=== PATIENT | male | born 1950 | race Caucasian/White ===

== ENCOUNTER 2017-03-30 06:18 | Outpatient (CLI) | payer OTHER | END 2017-03-30 06:19 | disposition home or self-care (01) | DX: C61 Malignant neoplasm of prostate (principal); D64.9 Anemia, unspecified ==

== ENCOUNTER 2017-06-23 14:23 | Emergency (ER) | payer OTHER ==
--- NOTE | 2017-06-23 15:17 | ED Physician Documentation ---
PD HPI ABD PAIN - Stated complaint Stated Complaint: R SIDE PX/KIDNEY PX - Chief complaint Chief Complaint: Abd Pain - History obtained from History obtained from: Patient - History of Present Illness Timing - onset: How many hours ago (3-4), Today Timing - details: Abrupt onset, Still present (on arrival to ED but is improving suddenly while here prior to medications.) Quality: Aching, Sharp, Pain Location: RLQ Radiation: Right flank Improved by: No: Laying still, Position Worsened by: No: Moving, Breathing, Position Associated symptoms: Nausea, Vomiting. No: Fever, Diarrhea, Constipation, Near syncope / syncope, Loss of appetite Similar symptoms before: Diagnosis (kidney stones) Review of Systems Constitutional: denies: Fever, Chills, Myalgias Nose: denies: Rhinorrhea / runny nose, Congestion Throat: denies: Sore throat Respiratory: denies: Cough GI: reports: Abdominal Pain (just today), Nausea (due to pain), Vomiting. denies: Constipation, Diarrhea : denies: Dysuria, Frequency Skin: denies: Rash, Lesions Neurologic: denies: Generalized weakness, Near syncope PD PAST MEDICAL HISTORY - Past Medical History Cardiovascular: None Respiratory: None Neuro: None Endocrine/Autoimmune: None - Present Medications Home Medications: Ambulatory Orders Medication Instructions Recorded Confirmed Ondansetron Odt [Zofran] 4 mg TL Q6H PRN #15 tablet 06/23/17 Tramadol HCl 50 mg PO Q6H PRN #20 tablet 06/23/17 - Allergies Allergies/Adverse Reactions: Allergies Allergy/AdvReac Type Severity Reaction Status Date / Time acetaminophen [From Percocet] AdvReac Unknown Verified 06/23/17 14:58 aspirin AdvReac Unknown Verified 06/23/17 14:58 hydrocodone AdvReac Unknown Verified 06/23/17 14:58 oxycodone HCl * AdvReac Unknown Verified 06/23/17 14:58 [From Percocet] - Living Situation Living Arrangement: reports: At home - Family History Family history: reports: Non contributory - Immunizations Immunizations are current?: Yes PD ED PE NORMAL - Vitals Vital signs reviewed: Yes - General General: Alert and oriented X 3, Well developed/nourished, Other (in pain due to stone initially, but was improving before I saw him and continues to improve. Having minimal to no pain now, and feels he may have passed it already. ) - Cardiac Cardiac: RRR, No murmur - Respiratory Respiratory: Clear bilaterally - Abdomen Abdomen: Normal bowel sounds, Soft, Non tender, Non distended, No organomegaly - Back Back: No CVA TTP Results - Vitals Vitals: Oxygen O2 Source Room air - Labs Labs: Laboratory Tests 06/23/17 06/23/17 15:06 15:19 POC Whole Bld Glucose 104 H Urine Color YELLOW Urine Clarity CLEAR Urine pH 7.5 Ur Specific [place] 1.015 Urine Protein NEGATIVE Urine Glucose (UA) NEGATIVE Urine Ketones 15 H Urine Occult Blood MODERATE H Urine Nitrite NEGATIVE Urine Bilirubin NEGATIVE Urine Urobilinogen 0.2 (NORMAL) Ur Leukocyte Esterase NEGATIVE Urine RBC 11-25 H Urine WBC 0-3 Ur Epithelial Cells RARE Renal Tubular Ur Squamous Epith Cells FEW Squamous Urine Bacteria Few Urine Casts 0-2 RBC Casts Urine Mucus Few Strands Ur Microscopic Review INDICATED Urine Culture Comments NOT INDICATED PD MEDICAL DECISION MAKING - ED course Complexity details: re-evaluated patient (still no pain here in ED so does seem to have passed the stone perhaps. He felt okay leaving [employer] ), considered differential, d/w patient Departure - Departure Disposition: 01 Home, Self Care Clinical Impression: Ureterolithiasis Abdominal pain Qualifiers: Abdominal location: right lower quadrant Qualified Code(s): R10.31 - Right lower quadrant pain Condition: Stable Record reviewed to determine appropriate education?: Yes Instructions: ED Stone Renal Passed Follow-Up: Shakeel Timmons MD [Primary Care Provider] - Prescriptions: Tramadol HCl 50 mg PO Q6H PRN #20 tablet PRN Reason: Pain Ondansetron Odt [Zofran] 4 mg TL Q6H PRN #15 tablet PRN Reason: Nausea / Vomiting Comments: Presume it was a kidney stone that has passed. If the pain stays absent or very mild, than just Tylenol or ibuprofen if needed for pains. Return if worsened again. If you have moderate pain, then you can use the pain medicines as needed. Discharge Date/Time: 06/23/17 16:21
[2017-06-23 15:38] LABS: BILIRUBIN,URINE NEGATIVE (NEGATIVE); PH,URINE 7.5 PH (5.0-7.5)
[2017-06-23 15:41] LABS: UA w/ MICROSCOPIC CHARGE YES
[2017-06-23 15:51] LABS: UR CULTURE IF IND NOT INDICATED; WBC,URINE 0-3 /HPF (0-3)
[2017-06-23 16:15] VITALS: BP 151/73
== END 2017-06-23 16:21 | disposition home or self-care (01) ==
LOC: ED 14:23
DX: N20.1 Calculus of ureter (principal); R10.31 Right lower quadrant pain
CPT/HCPCS: 81001; 81003; 87086; 99283

== ENCOUNTER 2018-03-28 05:36 | Outpatient (CLI) | payer OTHER ==
[2018-03-28 06:20] LABS: BASOPHILS # (AUTO) 0.1 10^3/uL (0.0-0.1); BASOPHILS % (AUTO) 0.8 %; EOSINOPHILS # (AUTO) 0.4 10^3/uL (0.0-0.7); EOSINOPHILS % (AUTO) 4.2 %; LYMPHOCYTES # (AUTO) 2.6 10^3/uL (1.5-3.5); LYMPHOCYTES % (AUTO) 28.6 %; MEAN CORPUSCULAR HGB CONC 33.3 g/dL (32.0-36.0); MEAN CORPUSCULAR VOLUME 90.3 fL (80.0-94.0); MEAN PLATELET VOLUME 7.4 fL (7.4-11.4); MONOCYTES # (AUTO) 0.7 10^3/uL (0.0-1.0); MONOCYTES % (AUTO) 7.4 %; NEUTROPHILS # (AUTO) 5.4 10^3/uL (1.5-6.6); PLT - PLATELET COUNT 274 10^3/uL (130-450); RED BLOOD COUNT 4.31 10^6/uL (4.70-6.10); WHITE BLOOD COUNT 9.2 x10^3/uL (4.8-10.8)
[2018-03-28 06:30] LABS: ALBUMIN 4.4 g/dL (3.2-5.5); ALBUMIN/GLOBULIN RATIO 1.2 (1.0-2.2); BILIRUBIN,TOTAL 0.8 mg/dL (0.2-1.0); CALCIUM 9.3 mg/dL (8.5-10.3); CREATININE 1.2 mg/dL (0.6-1.2)
== END 2018-03-28 05:37 | disposition home or self-care (01) ==
LOC: LAB 05:36
PROVIDERS: ATTEND Internal Medicine
DX: J44.9 Chronic obstructive pulmonary disease, unspecified (principal); F41.9 Anxiety disorder, unspecified; K21.9 Gastro-esophageal reflux disease without esophagitis; C61 Malignant neoplasm of prostate; Z79.899 Other long term (current) drug therapy
CPT/HCPCS: 36415; 80053; 84153; 84443; 85025

== ENCOUNTER 2018-05-17 11:01 | Outpatient (CLI) | payer OTHER | END 2018-05-17 11:02 | disposition home or self-care (01) | LOC: DI 11:01 | PROVIDERS: ATTEND Internal Medicine | DX: R94.31 Abnormal electrocardiogram [ECG] [EKG] (principal) | CPT/HCPCS: 93306 ==

== ENCOUNTER 2018-06-03 09:48 | Outpatient (CLI) | payer OTHER ==
[2018-06-03] MEDS ORDERED: REGADENOSON 0.4 MG/5 ML SYRINGE IVP ONE ×2 (11:14→15:16)
--- NOTE | 2018-06-03 16:35 | CARDIAC PROCEDURE NOTE ---
DATE OF SERVICE: 06/03/2018 Physician: FATIMAH Welch PRIMARY CARE PHYSICIAN: Shakeel Timmons MD PROCEDURE: Pharmacologic cardiac stress test. PROCEDURE DIAGNOSIS: Abnormal electrocardiogram with lateral T-wave inversion. CARDIAC RISK FACTORS: Include: 1. Age. 2. Hypertension. 3. Smoker. PREVIOUS CARDIAC PROCEDURES: Undocumented. CLINICAL HISTORY: A 68-year-old male without known coronary artery disease. He has COPD. He feels normal today. No medications were held. INITIAL RESTING VITAL SIGNS: BP 186/90, heart rate 62, height 71 inches, weight 164, BMI 22.92. PROCEDURE AND FINDINGS: The patient identity and date verified. Consent signed. Pharmaceutical check. Pharmacologic stress testing was performed with Lexiscan at a dose of 0.4 mg over 10 seconds. The heart rate increased to 88 beats per minute from the infusion and blood pressure peaked at 204/70. The patient developed no infusion-related symptoms. The resting ECG demonstrated normal sinus rhythm with nonspecific T-wave changes. Maximum ST segment depression with stress was 0 mm. There was no ectopy. FINAL IMPRESSIONS 1. Good quality test. 2. Nondiagnostic electrocardiogram for ischemia in the setting of vasodilator stress. 3. Nondiagnostic stress test for angina. 4. No ectopy. 5. Hypertensive blood pressure readings reducing to 164/84 at the end of the test. DISCUSSION AND RECOMMENDATIONS: Await myocardial perfusion report. The patient was noted to have T waves in aVL and V4, with stress, V3 developed biphasic T waves that eventually normalized. TD: 06/03/2018 15:31
--- NOTE | 2018-06-03 17:22 | Nuclear Medicine Report ---
Procedure Date: 06/03/2018 Accession Number: [id number] / [id number] Procedure: NM - Myocardial Perfusion STR/RST CPT Code: FULL RESULT: EXAM: SINGLE-ISOTOPE PHARMACOLOGICAL STRESS TEST WITH REGADENOSON. SINGLE-ISOTOPE AND ONE-DAY REST/STRESS MYOCARDIAL PERFUSION SCANS WITH TOMOGRAPHIC IMAGING, QUANTITATIVE ANALYSIS, WALL MOTION ANALYSIS AND CALCULATION OF EJECTION FRACTION. EXAM DATE: 06/03/2018 03:23 PM. CLINICAL HISTORY: Abnormal EKG COMPARISON: None. TECHNIQUE: After the intravenous administration of 10.2 mCi of Tc-99m sestamibi, a rest myocardial perfusion scan was done with tomography. Motion correction was applied when appropriate. After an appropriate delay, pharmacological stress was performed with the infusion of 0.4 mg regadenoson per protocol. According to protocol, 41.8 mCi of Tc-99m sestamibi was injected for stress myocardial perfusion scan. Motion correction was applied when appropriate. Gated tomographic images were obtained for wall motion analysis and computation of left ventricular ejection fraction. FINDINGS: Perfusion images: Left ventricular chamber size is normal at rest and unchanged at stress. No definite fixed perfusion deficits. Probable basal half inferior wall diaphragmatic attenuation artifact. There is apical thinning artifact. No convincing reversible perfusion deficits. Gated images: There is evidence of septal hypokinesis. The left ventricular ejection fraction is estimated at 56% (normal > 50%). Stress left ventricular EDV 152 mL, ESV 68 mL. IMPRESSION: 1. No convincing reversible perfusion deficits to indicate stress-induced ischemia. 2. No definite fixed perfusion deficits. Probable basal half inferior wall diaphragmatic attenuation artifact. Apical thinning artifact. 3. Left ventricular ejection fraction of 56% (normal > 50%). 4. There is evidence of septal hypokinesis. RADIA
== END 2018-06-03 09:49 | disposition home or self-care (01) ==
LOC: DI 09:48
PROVIDERS: ATTEND Internal Medicine
DX: R94.31 Abnormal electrocardiogram [ECG] [EKG] (principal)
CPT/HCPCS: 78452; 93016; 93017; 93018; A9500; J2785

== ENCOUNTER 2019-10-22 16:20 | Outpatient (CLI) | payer OTHER ==
--- NOTE | 2019-10-24 04:58 | Ultrasound Report ---
Reason: CAROTID BRUIT LT Procedure Date: 10/22/2019 Accession Number: [id number] / [id number] Procedure: US - Carotid Doppler Complete CPT Code: Final Report FULL RESULT: EXAM: BILATERAL CAROTID AND VERTEBRAL ARTERY DUPLEX DOPPLER ULTRASOUND EXAM DATE: 10/22/2019 05:22 PM CLINICAL HISTORY: Left carotid bruit. COMPARISON: CAROTID 09/06/2009 9:49 PM. TECHNIQUE: Grayscale imaging, color Doppler, and duplex spectral Doppler were used to evaluate the carotid and vertebral arteries bilaterally. Static images were obtained. FINDINGS: There is mild to moderate carotid plaquing on the right with moderate to large amount on the left. Normal antegrade flow is present in bilateral vertebral arteries. VELOCITIES (cm/sec): Right CCA mid: PSV 63.3 cm/sec CCA dist: PSV 71.9 cm/sec ICA prox: PSV 98.0 cm/sec, EDV 18.2 cm/sec ICA mid: PSV 74.7 cm/sec, EDV 15.5 cm/sec ICA dist: PSV 83.0 cm/sec, EDV 21.8 cm/sec ECA: PSV 86.0 cm/sec Vert: PSV 45.8 cm/sec ICA/CCA: 1.4 Left CCA mid: PSV 60.1 cm/sec CCA dist: PSV 113.9 cm/sec ICA prox: PSV 89.3 cm/sec, EDV 17.3 cm/sec ICA mid: PSV 85.6 cm/sec, EDV 18.2 cm/sec ICA dist: PSV 75.6 cm/sec, EDV 24.6 cm/sec ECA: PSV 115.7 cm/sec Vert: PSV 79.0 cm/sec ICA/CCA: 0.8 ICA diameter stenosis: Right: <50% by velocity and <70% by NASCET criteria. Left: <50% by velocity and <70% by NASCET criteria. IMPRESSION: 1. There is bilateral carotid artery plaquing, left greater than right. 2. In the right carotid artery there are no elevated carotid artery velocities to suggest hemodynamically significant stenosis. 3. In the left carotid artery there are no elevated carotid artery velocities to suggest hemodynamically significant stenosis. 4. Normal antegrade flow is present in bilateral vertebral arteries. General Recommendations: Stenosis =50% ICA - Follow-up ultrasound 6-12 months Stenosis <50% ICA - High Risk Patient with plaque - Follow-up ultrasound 1-2 years Normal Study but High Risk Patient - Follow-up ultrasound 3-5 years Management recommendations and diagnostic criteria are based on current IAC endorsed standards in Carotid Artery Stenosis: Grayscale and Doppler Ultrasound Diagnosis. Validated velocity measurements with angiographic measurements and velocity criteria are extrapolated from diameter data as defined by the Society of Radiologists in Ultrasound Consensus Conference Radiology 2003; 229;340-346. RADIA
== END 2019-10-22 16:21 | disposition home or self-care (01) ==
LOC: DI 16:20
PROVIDERS: ATTEND Family Medicine
DX: R09.89 Other specified symptoms and signs involving the circulatory and respiratory systems (principal)
CPT/HCPCS: 93880

== ENCOUNTER 2020-01-11 08:10 | Outpatient (CLI) | payer OTHER ==
--- NOTE | 2020-01-11 13:32 | MRI Report ---
Reason: MIGRAINE HEADACHES Procedure Date: 01/11/2020 Accession Number: [id number] / [id number] Procedure: MRI - Brain W/O CPT Code: Final Report FULL RESULT: EXAM: MRI brain without contrast INDICATION: 69-year-old male with migraine headaches. TECHNIQUE: 1. Sagittal T1 spin-echo. 2. Coronal fat-saturated T2. 3. Axial T1 MP rage, FLAIR, T2, T2*and DWI. COMPARISON: None. FINDINGS: There is generalized dilatation of the cerebral cortical sulci, considered well within normal limits for stated age. There is mild ex vacuo third/lateral ventriculomegaly. No hydrocephalus. A mild amount of white matter disease is identified in the supratentorial brain, manifested as focal and confluent T2 hyperintensities that are scattered throughout the periventricular, deep and subcortical white matter bilaterally. A frontoparietal distribution predominates. A small T2 hyperintensity is seen in the left thalamus, likely representing gliosis from a remote small-vessel ischemic injury. The signal intensity of the cortex and white matter is otherwise unremarkable. Flow voids are demonstrated in the main intracranial arteries. No abnormal diffusion restriction is demonstrated. No evidence of acute or chronic hemorrhage on the T2* GRE sequence. No abnormal extra-axial fluid collection. No mass effect or midline shift. Limited evaluation of the orbits reveals no gross pathology. A mucous retention cyst is demonstrated in a posterior ethmoid air cell on the left. There is mild mucosal thickening in the ethmoid air cells bilaterally and in the right frontal sinus. The paranasal sinuses are otherwise clear. No mastoid or middle ear effusion is demonstrated. The marrow signal intensity in the regional skeletal structures is unremarkable. IMPRESSION: 1. A mild amount of white matter disease is identified, likely representing chronic microangiopathy. 2. No other significant intracranial findings on this unenhanced brain MRI. In particular, there is no evidence of hemorrhage, space-occupying mass lesion or other potential cause for headaches.
== END 2020-01-11 08:11 | disposition home or self-care (01) ==
LOC: DI 08:10
PROVIDERS: ATTEND Physician Assistant
DX: G43.909 Migraine, unspecified, not intractable, without status migrainosus (principal); R90.82 White matter disease, unspecified
CPT/HCPCS: 70551

== ENCOUNTER 2020-05-01 11:37 | Outpatient (CLI) | payer OTHER ==
[2020-05-01 18:23] LABS: CALCIUM 9.5 mg/dL (8.5-10.3); CREATININE 1.5 mg/dL (0.6-1.2)
== END 2020-05-01 11:38 | disposition home or self-care (01) ==
LOC: LAB.WCP 11:37
PROVIDERS: ATTEND Family Medicine
DX: E87.5 Hyperkalemia (principal)
CPT/HCPCS: 36415; 80048

== ENCOUNTER 2021-03-21 07:48 | Outpatient (CLI) | payer OTHER ==
[2021-03-21 08:22] LABS: ALBUMIN 4.4 g/dL (3.2-5.5); ALBUMIN/GLOBULIN RATIO 1.3 (1.0-2.2); ALKALINE PHOSPHATASE 63 IU/L (42-121); ALT ALANINE AMINOTRANSFERASE 14 IU/L (10-60); AST ASPARTATE AMINOTRANSFERASE 15 IU/L (10-42); BILIRUBIN,TOTAL 0.9 mg/dL (0.2-1.0); BUN - BLOOD UREA NITROGEN 21 mg/dL (6-20); CALCIUM 9.4 mg/dL (8.5-10.3); CARBON DIOXIDE - CO2 22 mmol/L (21-32); CHLORIDE 104 mmol/L (101-111); CHOLESTEROL 181 mg/dL; CREATININE 1.7 mg/dL (0.6-1.2); GFR - MDRD 40 (>89); GLUCOSE 94 mg/dL (70-100); HDL CHOLESTEROL 45 mg/dL; LDL CHOLESTEROL,CALCULATED 121 mg/dL; LDL/HDL RATIO 2.7 (<3.6); POTASSIUM 4.4 mmol/L (3.5-5.0); SODIUM 137 mmol/L (135-145); TOTAL PROTEIN 7.8 g/dL (6.7-8.2); TRIGLYCERIDES 75 mg/dL; VLDL CHOLESTEROL 15 mg/dL
[2021-03-21 08:24] LABS: BASOPHILS # (AUTO) 0.1 10^3/uL (0.0-0.1); BASOPHILS % (AUTO) 0.9 %; EOSINOPHILS # (AUTO) 0.4 10^3/uL (0.0-0.7); EOSINOPHILS % (AUTO) 4.3 %; HCT - HEMATOCRIT 37.5 % (42.0-52.0); HGB - HEMOGLOBIN 12.6 g/dL (14.0-18.0); LYMPHOCYTES # (AUTO) 2.1 10^3/uL (1.5-3.5); LYMPHOCYTES % (AUTO) 23.9 %; MEAN CORPUSCULAR HEMOGLOBIN 31.2 pg (27.0-31.0); MEAN CORPUSCULAR HGB CONC 33.6 g/dL (32.0-36.0); MEAN CORPUSCULAR VOLUME 92.8 fL (80.0-94.0); MEAN PLATELET VOLUME 9.1 fL (7.4-11.4); MONOCYTES # (AUTO) 0.6 10^3/uL (0.0-1.0); MONOCYTES % (AUTO) 6.5 %; NEUTROPHILS # (AUTO) 5.6 10^3/uL (1.5-6.6); NEUTROPHILS % (AUTO) 64.1 %; PLT - PLATELET COUNT 283 10^3/uL (130-450); RED BLOOD COUNT 4.04 10^6/uL (4.70-6.10); RED CELL DISTRIBUTION WIDTH 12.6 % (12.0-15.0); WHITE BLOOD COUNT 8.7 x10^3/uL (4.8-10.8)
[2021-03-21 08:35] LABS: THYROID STIMULATING HORMONE 1.97 uIU/mL (0.34-5.60)
== END 2021-03-21 07:49 | disposition home or self-care (01) ==
LOC: LAB 07:48
PROVIDERS: ATTEND Family Medicine
DX: I12.9 Hypertensive chronic kidney disease with stage 1 through stage 4 chronic kidney disease, or unspecified chronic kidney disease (principal); N18.30 Chronic kidney disease, stage 3 unspecified; E87.5 Hyperkalemia
CPT/HCPCS: 36415; 80053; 80061; 83721; 84443; 85025

== ENCOUNTER 2021-11-14 07:16 | Outpatient (CLI) | payer MEDICARE, OTHER ==
--- NOTE | 2021-11-14 08:53 | Ultrasound Report ---
PROCEDURE: Carotid Doppler Complete INDICATIONS: CAROTID STENOSIS TECHNIQUE: Color and pulse Doppler interrogation was performed of both carotid systems, with image documentation and velocity measurements. COMPARISON: None. FINDINGS: Right side: Brachial blood pressure: 186/107 mm Hg. Common carotid artery peak systolic velocity: 77 cm/sec. Internal carotid artery peak systolic velocity: 95 cm/sec. Internal carotid artery end diastolic velocity: 18 cm/sec. External carotid artery peak systolic velocity: 155 cm/sec. ICA/CCA peak systolic ratio: 1.23 . Spencer scale imaging description: Eccentric mural plaque in the right bulb causing 75% stenosis by cross cut saw operator ss-sectional imaging with no significant stenosis by velocity/ratio criteria. Percent internal carotid artery stenosis: Less than 50% . Vertebral artery: Flow direction is antegrade. Left side: Brachial blood pressure: 195/91 mm Hg. Common carotid artery peak systolic velocity: 171 cm/sec. Internal carotid artery peak systolic velocity: 91 cm/sec. Internal carotid artery end diastolic velocity: 22 cm/sec. External carotid artery peak systolic velocity: 80 cm/sec. ICA/CCA peak systolic ratio: 0.53 . Spencer scale imaging description: Eccentric mural plaque in the left bulb causes a 67% stenosis by cross cut saw operator ss-sectional imaging with no significant stenosis by velocity/ratio criteria, however turbulent flow noted. Percent internal carotid artery stenosis: Less than 50% stenosis by velocity/ratio criteria. Vertebral artery: Flow direction is antegrade. IMPRESSION: 1. Both bulbs demonstrate eccentric mural plaque causing 75% diameter reduction on the right and 67% diameter reduction on the left, however by NASCET criteria there is less than 50% stenosis. By veloci ty/ratio criteria there is also less than 50% stenosis. 2. Consider MR angiogram The estimate of stenosis included in the report of the imaging study was calculated using the NASCET method Reviewed by: Zeke Bajwa on 11/14/2021 8:52 AM PST Approved by: Zeke Bajwa on 11/14/2021 8:52 AM PST Station ID: [id number]
== END 2021-11-14 07:17 | disposition home or self-care (01) ==
LOC: DI 07:16
PROVIDERS: ATTEND Family Medicine
DX: I65.23 Occlusion and stenosis of bilateral carotid arteries (principal)
CPT/HCPCS: 93880

== ENCOUNTER 2022-07-01 07:21 | Outpatient (CLI) | payer MEDICARE ==
[2022-07-01 07:38] LABS: BASOPHILS # (AUTO) 0.1 10^3/uL (0.0-0.1); BASOPHILS % (AUTO) 0.6 %; EOSINOPHILS # (AUTO) 0.3 10^3/uL (0.0-0.7); EOSINOPHILS % (AUTO) 3.4 %; HCT - HEMATOCRIT 34.3 % (42.0-52.0); HGB - HEMOGLOBIN 11.7 g/dL (14.0-18.0); LYMPHOCYTES # (AUTO) 2.7 10^3/uL (1.5-3.5); LYMPHOCYTES % (AUTO) 32.3 %; MEAN CORPUSCULAR HEMOGLOBIN 31.5 pg (27.0-31.0); MEAN CORPUSCULAR HGB CONC 34.1 g/dL (32.0-36.0); MEAN CORPUSCULAR VOLUME 92.2 fL (80.0-94.0); MONOCYTES # (AUTO) 0.5 10^3/uL (0.0-1.0); NEUTROPHILS # (AUTO) 4.9 10^3/uL (1.5-6.6); NEUTROPHILS % (AUTO) 57.6 %; PLT - PLATELET COUNT 277 10^3/uL (130-450); RED BLOOD COUNT 3.72 10^6/uL (4.70-6.10); RED CELL DISTRIBUTION WIDTH 12.8 % (12.0-15.0); WHITE BLOOD COUNT 8.5 x10^3/uL (4.8-10.8)
[2022-07-01 07:48] LABS: ALBUMIN/GLOBULIN RATIO 1.1 (1.0-2.2); BILIRUBIN,TOTAL 0.6 mg/dL (0.2-1.0); CALCIUM 9.7 mg/dL (8.5-10.3); CREATININE 1.9 mg/dL (0.6-1.2); POTASSIUM 4.8 mmol/L (3.5-5.0); TOTAL PROTEIN 7.6 g/dL (6.7-8.2)
[2022-07-01 08:05] LABS: THYROID STIMULATING HORMONE 2.44 uIU/mL (0.34-5.60)
== END 2022-07-01 07:22 | disposition home or self-care (01) ==
LOC: LAB 07:21
PROVIDERS: ATTEND Family Medicine
DX: R19.7 Diarrhea, unspecified (principal); R63.4 Abnormal weight loss
CPT/HCPCS: 36415; 80053; 84443; 85025

== ENCOUNTER 2023-01-22 08:47 | Day surgery (SDC) | payer MEDICARE ==
[2023-01-22] MEDS ORDERED: LACTATED RINGERS 1,000 ML IV ONE (08:58)
[2023-01-22] MEDS ORDERED: PROPOFOL 500 MG/50 ML 500 MG/50 ML VIAL ONE (10:08)
--- NOTE | 2023-01-22 10:18 | ANESTHESIA ---
Pre-Anesthesia VS, & Labs - Diagnosis screening exam - Procedure colonoscopy Vital Signs: Temp Pulse Resp BP Pulse Ox O2 Flow Rate 36.3 C L 76 16 173/92 H 100 0 01/22/23 09:15 01/22/23 09:15 01/22/23 09:15 01/22/23 09:15 01/22/23 09:15 01/22/23 09:15 Height: 6 ft Weight (kg): 69.8 kg Body Mass Index: 20.8 BMI Classification: Normal - NPO >8 hours - Lab Results Current Lab Results: Laboratory Tests 01/22/23 09:14: POC Whole Bld Glucose 82 Home Medications and Allergies Home Medications: Ambulatory Orders Lactobacillus Combination No.4 [Probiotic] 1 each PO DAILY 01/21/23 Lisinopril [Zestril] 10 mg PO BID 01/21/23 Multivitamin 1 each PO DAILY 01/21/23 Omeprazole 40 mg PO DAILY 01/21/23 Lactobacillus Combination No.4 [Probiotic] 1 each PO DAILY 01/21/23 Lisinopril [Zestril] 10 mg PO BID 01/21/23 Multivitamin 1 each PO DAILY 01/21/23 Omeprazole 40 mg PO DAILY 01/21/23 Allergies/Adverse Reactions: Allergies Allergy/AdvReac Type Severity Reaction Status Date / Time acetaminophen [From Percocet] AdvReac Unknown Verified 06/23/17 14:58 aspirin AdvReac Unknown Verified 06/23/17 14:58 hydrocodone AdvReac Unknown Verified 06/23/17 14:58 oxycodone HCl * AdvReac Unknown Verified 06/23/17 14:58 [From Percocet] Anes History & Medical History - Anesthetic History Anesthesia Complications: reports: No previous complications - Medical History Cardiovascular: reports: Hypertension Pulmonary: reports: None Gastrointestinal: reports: GERD, Hiatal hernia Urinary: reports: Benign prostate hypertrophy (brachytherapy), Kidney stones Neuro: reports: None Musculoskeletal: reports: Other Endocrine/Autoimmune: reports: None Smoking Status: Never smoker Psychosocial: reports: No issues indicated History of Cancer?: No - Surgical History General: reports: Colonoscopy Urologic: reports: Prostatic surgery Orthopedic: reports: Rotator cuff repair Exam General: Alert, Oriented x3, Cooperative, No acute distress Dental: WNL Mouth Openin Fingerbreadth Neck Mobility: Normal Mallampati classification: I Thyromental Distance: 4-6 cm Mental/Cognitive Status: Alert/Oriented X3, Normal for patient Plan Anesthesia Type: General Consent for Procedure(s) Verified and Reviewed: Yes Code Status: Attempt Resuscitation ASA classification: 2-Mild systemic disease Is this case an emergency?: No
[2023-01-22] MEDS ORDERED: LACTATED RINGERS 300 ML IV ONE (11:01)
[2023-01-22 11:20] VITALS: BP 143/88
--- NOTE | 2023-01-22 11:44 | ANESTHESIA POST OP EVALUATION ---
Anesthesia Post Eval - Post Anesthesia Eval Vitals: Last Vital Signs Temp 36.5 C 01/22/23 11:19 Pulse 73 01/22/23 11:19 Resp 16 01/22/23 11:19 BP 143/88 H 01/22/23 11:19 Pulse Ox 99 01/22/23 11:19 O2 Flow Rate 0 01/22/23 09:15 CV Function Including HR & BP: Stable Pain Control: Satisfactory Nausea & Vomiting: Negative Mental Status: Baseline Respiratory Status: Airway Patent Hydration Status: Satisfactory Anesthesia Complications: None
== END 2023-01-22 08:48 | disposition home or self-care (01) ==
LOC: SDS 08:47
PROVIDERS: ATTEND Surgery
PROC: 0DBN8ZZ Excision of Sigmoid Colon, Via Natural or Artificial Opening Endoscopic (ICD-10-PCS; principal; 2023-01-22 10:30)
DX: Z12.11 Encounter for screening for malignant neoplasm of colon (principal); K63.5 Polyp of colon; J44.9 Chronic obstructive pulmonary disease, unspecified
CPT/HCPCS: 45380; J7120

== ENCOUNTER 2023-07-21 06:49 | Outpatient (CLI) | payer MEDICARE ==
[2023-07-21 07:23] LABS: BASOPHILS # (AUTO) 0.1 10^3/uL (0.0-0.1); EOSINOPHILS # (AUTO) 0.3 10^3/uL (0.0-0.7); EOSINOPHILS % (AUTO) 3.6 %; HCT - HEMATOCRIT 35.8 % (42.0-52.0); HGB - HEMOGLOBIN 11.8 g/dL (14.0-18.0); LYMPHOCYTES # (AUTO) 3.1 10^3/uL (1.5-3.5); LYMPHOCYTES % (AUTO) 39.4 %; MEAN CORPUSCULAR HEMOGLOBIN 30.6 pg (27.0-31.0); MEAN PLATELET VOLUME 9.4 fL (7.4-11.4); MONOCYTES # (AUTO) 0.6 10^3/uL (0.0-1.0); MONOCYTES % (AUTO) 7.7 %; NEUTROPHILS # (AUTO) 3.7 10^3/uL (1.5-6.6); NEUTROPHILS % (AUTO) 47.9 %; PLT - PLATELET COUNT 289 10^3/uL (130-450); RED BLOOD COUNT 3.85 10^6/uL (4.70-6.10); RED CELL DISTRIBUTION WIDTH 12.3 % (12.0-15.0); WHITE BLOOD COUNT 7.8 x10^3/uL (4.8-10.8)
[2023-07-21 07:33] LABS: ALBUMIN 4.3 g/dL (3.2-5.5); ALBUMIN/GLOBULIN RATIO 1.3 (1.0-2.2); ALKALINE PHOSPHATASE 68 IU/L (42-121); ALT ALANINE AMINOTRANSFERASE 8 IU/L (10-60); AST ASPARTATE AMINOTRANSFERASE 11 IU/L (10-42); BILIRUBIN,TOTAL 0.5 mg/dL (0.2-1.0); BUN - BLOOD UREA NITROGEN 26 mg/dL (6-20); CALCIUM 9.9 mg/dL (8.5-10.3); CARBON DIOXIDE - CO2 26 mmol/L (21-32); CHLORIDE 108 mmol/L (101-111); CHOL/HDL RATIO 4.3 (<5.0); CHOLESTEROL 171 mg/dL; CREATININE 1.8 mg/dL (0.6-1.3); GFR - MDRD 37 (>89); GLUCOSE 91 mg/dL (74-104); HDL CHOLESTEROL 40 mg/dL; LDL CHOLESTEROL,CALCULATED 94 mg/dL; LDL/HDL RATIO 2.4 (<3.6); POTASSIUM 4.5 mmol/L (3.5-4.5); SODIUM 140 mmol/L (135-145); TOTAL PROTEIN 7.5 g/dL (6.4-8.9); TRIGLYCERIDES 185 mg/dL (48-352); VLDL CHOLESTEROL 37 mg/dL
[2023-07-21 07:45] LABS: THYROID STIMULATING HORMONE 2.66 uIU/mL (0.34-5.60)
== END 2023-07-21 06:50 | disposition home or self-care (01) ==
LOC: LAB 06:49
PROVIDERS: ATTEND Nurse Practitioner
DX: I65.29 Occlusion and stenosis of unspecified carotid artery (principal); I10 Essential (primary) hypertension; R63.4 Abnormal weight loss
CPT/HCPCS: 36415; 80053; 80061; 83721; 84153; 84443; 85025

== ENCOUNTER 2023-07-30 10:15 | Outpatient (CLI) | payer MEDICARE ==
[2023-07-30] MEDS ORDERED: iohexoL-300 100 ML VIAL IVP ONE (15:07)
--- NOTE | 2023-07-30 15:42 | CT Report ---
PROCEDURE: CT Angio Head/Neck INDICATIONS: CAROTID STENOSIS TECHNIQUE: Pre-contrast 4.5 mm thick sections acquired from the foramen magnum to the vertex. After the adminis tration of intravenous contrast, 1 mm thick sections acquired from the aortic arch through the [place] of [place]. Post-contrast 4.5 mm thick sections then re-acquired from the foramen magnum to the vert ex. 3-dimensional baztzfd-kfengfxhq-efkiiessvo (MIP) and/or volume rendering reformats were acquired of the central intracranial vasculature and neck separately. For radiation dose reduction, the foll owing was used: automated exposure control, adjustment of mA and/or kV according to patient size. CONTRAST: 80 cc of Isovue 300 COMPARISON: Carotid Doppler ultrasound 07/08/2023 FINDINGS: Image quality: Excellent. HEAD CT ANGIOGRAPHY: Anterior circulation: Atherosclerotic vascular calcifications of the intracranial internal carotid ar teries with moderate stenosis of the cavernous segments bilaterally.. The flow within the paired ant erior cerebral arteries is normal and symmetric. The flow within the middle cerebral arteries is nor mal and symmetric. The anterior communicating artery is seen. No aneurysms are seen. Posterior circulation: Visualized portions of the vertebral arteries demonstrate normal caliber, and join to form a normal appearing basilar artery. Flow within the posterior cerebral arteries is norm al and symmetric. No aneurysms are seen. NECK CT ANGIOGRAPHY: Carotid system: The great vessels demonstrate a conventional anatomy as they arise from the aortic a rch. Atherosclerotic calcified and noncalcified plaques within the aorta and proximal great vessels without hemodynamically significant stenosis. The origins of the common carotid arteries appear paten t. Atherosclerotic vascular calcifications of the bilateral common carotid arteries, greater on the l eft with areas of moderate narrowing. Mild narrowing of the right common carotid artery.. Atheroscler otic vascular calcifications of the bilateral carotid bulbs with approximately 40% narrowing of the p roximal right ICA. No significant narrowing of the left ICA.. The internal carotid arteries demonstr ate normal calibers and courses. Posterior circulation: Severe stenosis of the origin of the right vertebral artery and moderate steno sis at the origin of the left vertebral artery.. The more superior extracranial portions of both re tebral arteries also demonstrate normal courses and calibers with areas of atherosclerosis without na rrowing. They join to form a normal appearing basilar artery. Soft tissues: Visualized neck soft tissues demonstrate no suspicious abnormalities. Upper lobe emph ysematous changes. Bones: No suspicious bony lesions. Visualized cervical spine appears normally aligned. Degenerative changes of the cervical spine are present. IMPRESSION: 1.Diffuse atherosclerotic vascular calcifications. No large vessel occlusion, aneurysm or AVM. 2.There is moderate narrowing of the bilateral cavernous segments of the intracranial internal caroti d arteries with normal caliber and patency distally. 3.There is approximately 40% narrowing of the right proximal extracranial ICA. No significant narrowi ng of the left extracranial ICA. 4.Moderate narrowing of the left common carotid artery and mild narrowing of the right common carotid artery. 5.Severe stenosis of the origin of the right vertebral artery and moderate stenosis of the origin of the left vertebral artery. There is normal patency of the vertebral arteries distally. The estimate of stenosis included in the report of the imaging study was calculated using the NASCET method Reviewed by: Ari Marin MD on 07/30/2023 3:40 PM PDT Approved by: Ari Marin MD on 07/30/2023 3:40 PM PDT Station ID: [id number]
== END 2023-07-30 10:16 | disposition home or self-care (01) ==
LOC: DI 10:15
PROVIDERS: ATTEND Nurse Practitioner
DX: I65.23 Occlusion and stenosis of bilateral carotid arteries (principal); I70.0 Atherosclerosis of aorta; I67.2 Cerebral atherosclerosis
CPT/HCPCS: 70496; 70498; Q9967

== ENCOUNTER 2023-11-26 07:46 | Outpatient (CLI) | payer MEDICARE ==
[2023-11-26 08:15] LABS: BASOPHILS # (AUTO) 0.1 10^3/uL (0.0-0.1); BASOPHILS % (AUTO) 0.9 %; EOSINOPHILS # (AUTO) 0.5 10^3/uL (0.0-0.7); EOSINOPHILS % (AUTO) 5.9 %; HCT - HEMATOCRIT 34.1 % (42.0-52.0); HGB - HEMOGLOBIN 11.3 g/dL (14.0-18.0); LYMPHOCYTES # (AUTO) 2.1 10^3/uL (1.5-3.5); LYMPHOCYTES % (AUTO) 27.8 %; MEAN CORPUSCULAR HEMOGLOBIN 30.5 pg (27.0-31.0); MEAN CORPUSCULAR HGB CONC 33.1 g/dL (32.0-36.0); MEAN CORPUSCULAR VOLUME 92.2 fL (80.0-94.0); MEAN PLATELET VOLUME 8.6 fL (7.4-11.4); MONOCYTES # (AUTO) 0.6 10^3/uL (0.0-1.0); MONOCYTES % (AUTO) 7.7 %; NEUTROPHILS # (AUTO) 4.4 10^3/uL (1.5-6.6); NEUTROPHILS % (AUTO) 57.4 %; PLT - PLATELET COUNT 242 10^3/uL (130-450); WHITE BLOOD COUNT 7.7 x10^3/uL (4.8-10.8)
[2023-11-26 08:16] LABS: BILIRUBIN,URINE NEGATIVE (NEGATIVE); GLUCOSE, URINE (UA) NEGATIVE (NEGATIVE); KETONES,URINE (UA) NEGATIVE (NEGATIVE); LEUKOCYTE ESTERASE, URINE NEGATIVE (NEGATIVE); NITRITE,URINE NEGATIVE (NEGATIVE); OCCULT BLOOD,URINE TRACE-INTA (NEGATIVE); PROTEIN,URINE TRACE mg/dL (NEGATIVE); UROBILINOGEN,URINE 0.2 (NORMAL) E.U./dL (NORMAL)
[2023-11-26 08:29] LABS: CLARITY,URINE CLEAR (CLEAR); RBC,URINE 0-5 /HPF (0-5); SQUAMOUS EPITHELIAL CELL,UR FEW Squamous (<= Few)
[2023-11-26 08:30] LABS: BACTERIA,URINE Rare /HPF (None Seen)
[2023-11-26 08:33] LABS: ALBUMIN 4.4 g/dL (3.2-5.5); ALBUMIN/GLOBULIN RATIO 1.5 (1.0-2.2); ALKALINE PHOSPHATASE 74 IU/L (42-121); ALT ALANINE AMINOTRANSFERASE 14 IU/L (10-60); AST ASPARTATE AMINOTRANSFERASE 14 IU/L (10-42); BILIRUBIN,TOTAL 0.6 mg/dL (0.2-1.0); BUN - BLOOD UREA NITROGEN 37 mg/dL (6-20); CALCIUM 9.6 mg/dL (8.5-10.3); CARBON DIOXIDE - CO2 26 mmol/L (21-32); CHLORIDE 107 mmol/L (101-111); CHOL/HDL RATIO 2.5 (<5.0); CHOLESTEROL 119 mg/dL; CREATININE 2.2 mg/dL (0.6-1.3); GFR - MDRD 29 (>89); GLUCOSE 94 mg/dL (74-104); HDL CHOLESTEROL 48 mg/dL; LDL CHOLESTEROL,CALCULATED 55 mg/dL; LDL/HDL RATIO 1.1 (<3.6); POTASSIUM 4.5 mmol/L (3.5-4.5); SODIUM 140 mmol/L (135-145); TOTAL PROTEIN 7.4 g/dL (6.4-8.9); TRIGLYCERIDES 81 mg/dL (48-352); VLDL CHOLESTEROL 16 mg/dL
== END 2023-11-26 07:47 | disposition home or self-care (01) ==
LOC: LAB 07:46
PROVIDERS: ATTEND Nurse Practitioner
DX: C61 Malignant neoplasm of prostate (principal); I10 Essential (primary) hypertension; Z51.81 Encounter for therapeutic drug level monitoring; E78.5 Hyperlipidemia, unspecified
CPT/HCPCS: 36415; 80053; 80061; 81001; 83721; 84153; 84403; 85025

== ENCOUNTER 2023-12-24 12:02 | Outpatient (CLI) | payer MEDICARE ==
--- NOTE | 2023-12-24 17:11 | Ultrasound Report ---
PROCEDURE: Renal (Retroperitoneal) INDICATIONS: RENAL CALCULUS TECHNIQUE: Real-time scanning was performed of the retroperitoneal organs, with image documentation. COMPARISON: None. FINDINGS: Kidneys: Kidneys are normal in size. Right kidney measures 11.7 cm long; left kidney measures 10.5 cm long. Right renal cortical thickness is 2.2 cm; left renal cortical thickness is 1.6 cm. No nirmala d masses, hydronephrosis, or nephrolithiasis. Multiple bilateral simple cysts, the largest of which measures 4.3 x 4 x 4.2 cm on the right and the largest of which measures 6.1 x 5.2 x 5.4 cm on the le ft. There is a right lower pole cyst measuring 3.7 x 3.3 x 4.6 cm with a thin linear septation (Bosni ak 2). Bladder: Pre-void bladder volume is 297 mL. Post-void residual is 28 mL. Pre-void images demonstra te no intraluminal masses or stones. On pre-void images, bilateral ureteral jets are noted with colo r Doppler interrogation. (Of note, ureteral jets may not be detectable in up to 25% of cases due to insufficient differences in specific gravity between ureteral and bladder urine). Miscellaneous: No free abdominal fluid. Prostate measures 4.2 x 5 x 3.8 cm. IMPRESSION: 1.No hydronephrosis or nephrolithiasis bilaterally. 2.Multiple bilateral cysts. No suspicious features to warrant follow-up. Reviewed by: Chuck Marie MD on 12/24/2023 5:10 PM PST Approved by: Chuck Marie MD on 12/24/2023 5:10 PM PST Station ID: [id number]
== END 2023-12-24 12:03 | disposition home or self-care (01) ==
LOC: DI 12:02
PROVIDERS: ATTEND Urology
DX: N28.1 Cyst of kidney, acquired (principal)

== ENCOUNTER 2024-05-11 07:16 | Outpatient (CLI) | payer MEDICARE ==
[2024-05-11 07:37] LABS: BASOPHILS # (AUTO) 0.1 10^3/uL (0.0-0.1); EOSINOPHILS # (AUTO) 0.5 10^3/uL (0.0-0.7); EOSINOPHILS % (AUTO) 6.7 %; HCT - HEMATOCRIT 31.8 % (42.0-52.0); HGB - HEMOGLOBIN 10.5 g/dL (14.0-18.0); LYMPHOCYTES # (AUTO) 2.2 10^3/uL (1.5-3.5); LYMPHOCYTES % (AUTO) 29.9 %; MEAN CORPUSCULAR HEMOGLOBIN 30.4 pg (27.0-31.0); MEAN CORPUSCULAR VOLUME 92.2 fL (80.0-94.0); MONOCYTES # (AUTO) 0.6 10^3/uL (0.0-1.0); MONOCYTES % (AUTO) 7.8 %; NEUTROPHILS # (AUTO) 3.9 10^3/uL (1.5-6.6); NEUTROPHILS % (AUTO) 54.2 %; PLT - PLATELET COUNT 249 10^3/uL (130-450); RED BLOOD COUNT 3.45 10^6/uL (4.70-6.10); WHITE BLOOD COUNT 7.3 x10^3/uL (4.8-10.8)
[2024-05-11 07:52] LABS: ALBUMIN 4.4 g/dL (3.2-5.5); ALBUMIN/GLOBULIN RATIO 1.3 (1.0-2.2); ALKALINE PHOSPHATASE 81 IU/L (42-121); ALT ALANINE AMINOTRANSFERASE 13 IU/L (10-60); AST ASPARTATE AMINOTRANSFERASE 13 IU/L (10-42); BILIRUBIN,TOTAL 0.8 mg/dL (0.2-1.0); BUN - BLOOD UREA NITROGEN 36 mg/dL (6-20); CALCIUM 9.8 mg/dL (8.5-10.3); CARBON DIOXIDE - CO2 23 mmol/L (21-32); CHLORIDE 107 mmol/L (101-111); CHOL/HDL RATIO 2.6 (<5.0); CHOLESTEROL 113 mg/dL; CREATININE 2.4 mg/dL (0.6-1.3); GFR - MDRD 27 (>89); GLUCOSE 92 mg/dL (74-104); HDL CHOLESTEROL 44 mg/dL; LDL CHOLESTEROL,CALCULATED 52 mg/dL; LDL/HDL RATIO 1.2 (<3.6); POTASSIUM 4.5 mmol/L (3.5-4.5); SODIUM 138 mmol/L (135-145); TOTAL PROTEIN 7.7 g/dL (6.4-8.9); TRIGLYCERIDES 87 mg/dL (48-352); VLDL CHOLESTEROL 17 mg/dL
== END 2024-05-11 07:17 | disposition home or self-care (01) ==
LOC: LAB 07:16
PROVIDERS: ATTEND Nurse Practitioner
DX: I10 Essential (primary) hypertension (principal); E78.5 Hyperlipidemia, unspecified
CPT/HCPCS: 36415; 80053; 80061; 83721; 85025

== ENCOUNTER 2024-05-24 08:00 | Outpatient (CLI) | payer MEDICARE ==
[2024-05-24 12:20] LABS: CREATININE,URINE 200.1 mg/dL; MICROALBUM/CREATININE RATIO,UR 74.5 ug/mg (<30.0); MICROALBUMIN,URINE 14.9 mg/dL
== END 2024-05-24 23:58 | disposition home or self-care (01) ==
LOC: LAB.WCP 08:00
PROVIDERS: ATTEND Nurse Practitioner
DX: N18.4 Chronic kidney disease, stage 4 (severe) (principal)
CPT/HCPCS: 82043; 82570

== ENCOUNTER 2024-05-27 15:51 | Outpatient (CLI) | payer MEDICARE ==
--- NOTE | 2024-05-28 09:39 | Ultrasound Report ---
PROCEDURE: Arterial Duplex Lwr Ext BL INDICATIONS: PERIPHERAL ARTERIAL OCCLUSIVE DISEASE TECHNIQUE: Color and pulse Doppler interrogation was performed of both lower extremity arterial systems, with im age documentation. COMPARISON: No relevant comparisons available at time of dictation. FINDINGS: Right lower extremity: Common femoral artery: 143 cm/sec, with triphasic flow. Deep femoral artery: 126 cm/sec, with triphasic flow. Proximal superficial femoral artery: 69 cm/sec, with monophasic flow. Mid superficial femoral artery: 140 cm/sec, with monophasic flow. Distal superficial femoral artery: 38 cm/sec, with monophasic flow. Popliteal artery: 33 cm/sec, with monophasic flow. Posterior tibial artery: 84 cm/sec, with monophasic flow. Anterior tibial artery/dorsalis pedis: 29/8 cm/sec, with monophasic flow. Spencer-scale imaging description: Significant atherosclerotic plaque throughout. Left lower extremity: Common femoral artery: 116 cm/sec, with triphasic flow. Deep femoral artery: 112 cm/sec, with triphasic flow. Proximal superficial femoral artery: 128 cm/sec, with biphasic flow. Mid superficial femoral artery: 303 cm/sec, with monophasic flow. Distal superficial femoral artery: 63 cm/sec, with biphasic flow. Popliteal artery: 60 cm/sec, with biphasic flow. Posterior tibial artery: 62 cm/sec, with biphasic flow. Anterior tibial artery/dorsalis pedis: 53/11 cm/sec, with biphasic/monophasic flow. Spencer-scale imaging description: Significant atherosclerotic plaque throughout. IMPRESSION: Significant atherosclerotic plaque throughout the lower extremity. Transition from triphasic to monophasic waveforms between the right common femoral artery to the supe rficial femoral artery, likely indicating significant stenosis within this region. Hemodynamically significant stenosis in the left middle superficial femoral artery. Reviewed by: Joshua Jiménez MD on 05/28/2024 9:38 AM PDT Approved by: Joshua Jiménez MD on 05/28/2024 9:38 AM PDT Station ID: [id number]
== END 2024-05-27 15:52 | disposition home or self-care (01) ==
LOC: DI 15:51
PROVIDERS: ATTEND Physician Assistant
DX: I70.203 Unspecified atherosclerosis of native arteries of extremities, bilateral legs (principal)
CPT/HCPCS: 93925

== ENCOUNTER 2024-05-27 15:52 | Outpatient (CLI) | payer MEDICARE ==
--- NOTE | 2024-05-28 09:43 | Ultrasound Report ---
PROCEDURE: Carotid Doppler Complete INDICATIONS: CAROTID ARTERY STENOSIS TECHNIQUE: Color and pulse Doppler interrogation was performed of both carotid systems, with image documentation and velocity measurements. COMPARISON: 07/08/2023. FINDINGS: Right side: Brachial blood pressure: 136/65 mm Hg. Common carotid artery peak systolic velocity: 83 cm/sec. Previously 107. Internal carotid artery peak systolic velocity: 115 cm/sec. Previously 91. Internal carotid artery end diastolic velocity: 28 cm/sec. Previously 23. External carotid artery peak systolic velocity: 122 cm/sec. Previously 86. ICA/CCA peak systolic ratio: 1.4 . Spencer scale imaging description: Noncalcified plaque within the proximal internal carotid artery and distal common carotid artery. Percent internal carotid artery stenosis: Less than 50 percent stenosis. Vertebral artery: Flow direction is antegrade. Left side: Brachial blood pressure: 147/70 mm Hg. Common carotid artery peak systolic velocity: 139 cm/sec. Previously 200. Internal carotid artery peak systolic velocity: 63 cm/sec. Previously 97. Internal carotid artery end diastolic velocity: 18 cm/sec. Previously 26. External carotid artery peak systolic velocity: 157 cm/sec. Previously 133. ICA/CCA peak systolic ratio: 0.5 . Spencer scale imaging description: Noncalcified plaque in the distal common carotid artery and partiall y calcified plaque in the proximal common carotid artery. Calcified plaque within the proximal international marketing coordinator al carotid artery. Percent internal carotid artery stenosis: Less than 50 percent stenosis. Vertebral artery: Flow direction is antegrade. IMPRESSION: 1. In the right internal carotid artery, there is less than 50 percent stenosis based on peak systoli c velocity criteria. Soft plaque (high risk) is present within the common and internal carotid artery . 2. In the left internal carotid artery, there is less than 50 percent stenosis based on peak systolic velocity criteria. Soft plaque (high risk) is present within the common carotid artery. 3. Antegrade blood flow within the right vertebral artery. 4. Antegrade blood flow within the left vertebral artery. The estimate of stenosis included in the report of the imaging study was calculated using the [facility]-end orsed standards of carotid artery stenosis. Reviewed by: Joshua Jiménez MD on 05/28/2024 9:41 AM PDT Approved by: Joshua Jiménez MD on 05/28/2024 9:41 AM PDT Station ID: [id number]
== END 2024-05-27 15:53 | disposition home or self-care (01) ==
LOC: DI 15:52
PROVIDERS: ATTEND Physician Assistant
DX: I65.23 Occlusion and stenosis of bilateral carotid arteries (principal); I70.203 Unspecified atherosclerosis of native arteries of extremities, bilateral legs
CPT/HCPCS: 93880; 93925

== ENCOUNTER 2024-07-01 07:48 | Outpatient (CLI) | payer MEDICARE ==
[2024-07-01 08:08] LABS: BASOPHILS # (AUTO) 0.1 10^3/uL (0.0-0.1); BASOPHILS % (AUTO) 0.8 %; EOSINOPHILS # (AUTO) 0.4 10^3/uL (0.0-0.7); HCT - HEMATOCRIT 31.2 % (42.0-52.0); HGB - HEMOGLOBIN 10.2 g/dL (14.0-18.0); LYMPHOCYTES # (AUTO) 2.3 10^3/uL (1.5-3.5); LYMPHOCYTES % (AUTO) 30.6 %; MEAN CORPUSCULAR HEMOGLOBIN 29.7 pg (27.0-31.0); MEAN CORPUSCULAR HGB CONC 32.7 g/dL (32.0-36.0); MEAN PLATELET VOLUME 8.8 fL (7.4-11.4); MONOCYTES # (AUTO) 0.7 10^3/uL (0.0-1.0); MONOCYTES % (AUTO) 8.7 %; NEUTROPHILS # (AUTO) 4.1 10^3/uL (1.5-6.6); NEUTROPHILS % (AUTO) 54.8 %; PLT - PLATELET COUNT 255 10^3/uL (130-450); RED BLOOD COUNT 3.43 10^6/uL (4.70-6.10); RED CELL DISTRIBUTION WIDTH 11.9 % (12.0-15.0); WHITE BLOOD COUNT 7.5 x10^3/uL (4.8-10.8)
[2024-07-01 08:22] LABS: ALBUMIN 4.5 g/dL (3.2-5.5); ALBUMIN/GLOBULIN RATIO 1.5 (1.0-2.2); BILIRUBIN,TOTAL 0.6 mg/dL (0.2-1.0); CALCIUM 9.8 mg/dL (8.5-10.3); CREATININE 2.6 mg/dL (0.6-1.3); POTASSIUM 4.4 mmol/L (3.5-4.5); TOTAL PROTEIN 7.6 g/dL (6.4-8.9)
[2024-07-01 08:26] LABS: CREATININE,URINE 137.3 mg/dL; MICROALBUM/CREATININE RATIO,UR 245.4 ug/mg (<30.0); MICROALBUMIN,URINE 33.7 mg/dL; PROTEIN/CREATININE RATIO,URINE 0.4 (<=0.2)
== END 2024-07-01 07:49 | disposition home or self-care (01) ==
LOC: LAB 07:48
PROVIDERS: ATTEND Internal Medicine Nephrology
DX: N18.32 Chronic kidney disease, stage 3b (principal); R80.9 Proteinuria, unspecified
CPT/HCPCS: 36415; 80053; 82043; 82570; 84156; 85025